=== PATIENT | male | born 1945 | race Caucasian/White ===

== ENCOUNTER 2025-04-14 21:21 | Emergency (ER) | payer MEDICARE, OTHER, SELFPAY ==
--- OUTSIDE RECORDS SUMMARY | 2024-11-19 09:20 | XMS_ITS | Encounter Summary ---
Author Name [facility] Organization [facility] [place] Address [address] [place] [id number] Care Team Providers Care Tire Recapper Name Role Phone BULMARO BONDS Primary Care Provider Jm villalobos Insurance Providers: All historical and current Section Date Range: From patient's date of to the date document was created. This section includes the names of all active insurance providers for the patient. Insurance Provider Type of Coverage Plan Name Start of Policy Coverage End of Policy Coverage Group Number Member ID Insurance Provider's Telephone Number Policy Nina's Name Patient's Relationship to Policy Nina MEDICARE (WNR) MEDICARE (M) PART A Oct 25, 2009 PART A [id number] [phone] JHOAN ALARCONY PATIENT MEDICARE (WNR) MEDICARE (M) PART B Oct 25, 2009 PART B [id number] [phone] HEDJHOAN PEACOCKY PATIENT MEDICARE (WNR) MEDICARE (M) PART B Oct 25, 2009 PART B [id number] [phone] JHOAN ALARCONY PATIENT MEDICARE (WNR) MEDICARE (M) PART A Oct 25, 2009 PART A [id number] [phone] JHOAN ALARCON PATIENT Selected Encounter This section includes the information on record at [place] for the Encounter. Date/Time Encounter Type Encounter Description Reason Pro vider Source Nov 19, 2024 02:20 PM Outpatient Encounter PRIMARY CARE/MEDICINE IHE Encounter Template Text not used by [place] Plan of Treatment: Future Appointments (+ 6 months) and Future Tests (+/- 45 days) The Plan of Treatment section includes future care activities for the [facility] [place] [facility] This section includes future appointments and future orders which are active, pending or scheduled. Future Appointments This section includes appointments that were scheduled to occur 6 months from the date of the Encounter, up to a maximum of 20 appointments. The data comes from all [facility] facilities. Appointment Date/Time Appointment Type Appointme nt Facility Name Feb 17, 2025 07:40 AM AMBULATORY - SURGERY [facility] May 11, 2025 09:40 AM AMBULATORY - SURGERY [facility] Lab Results: +/- 30 days of the encounter This section includes the Chemistry and Hematology Lab Results on record with [place] for the patient. Radiology Reports and Pathology Reports are provided separately, in subsequent sections. Lab Results This section contains the Chemistry/Hematology Results that were resulted 30 days before or 30 daysafter the date of the Encounter. Date/Time Source Result Type Result - Unit Interpretation Reference Range Specimen Type Comment Nov 06, 2024 10:[address] [facility] ALBUMIN/CREATININE RATIO URINE URINE Specimen Type: URINE No comment entered. Ordering Provider: BULMARO BONDS Report Released Date/Time: Oct 10, 2024 09:21 AM Reporting Lab: [facility] [id number] Performing Lab: [facility] [id number] CREATININE,UR RANDOM 142.1 mg/dL 58.0-16 1.0 ALB/CREAT RATIO,UR 50.0 mg/g{creat} H <29. 9 ALBUMIN,UR 71.1 mg/L H <29.9 Nov 06, 2024 10:[address] [facility] BASIC METABOLIC PANEL+MG PLASMA Spe cimen Type: PLASMA No comment entered. Ordering Provider: BULMARO BONDS Report Released Date/Time: Oct 09, 2024 09:44 AM Reporting Lab: [facility] [id number] Performing Lab: [facility] [phone] CREATININE 1.1 mg/dL 0.7-1.2 UREA NITROGEN 28 mg/dL H 8-26 GLUCOSE 126 mg/dL H 70-100 SODIUM 141 mmol/L 136-145 POTASSIUM 4.4 mmol/L 3.5-5.1 CHLORIDE 105 mmol/L 98-107 CO2 29 mmol/L 22-29 CALCIUM 9.9 mg/dL 8.4-10.2 MAGNESIUM 1.7 mg/dL 1.6-2.6 ANION GAP 7 mmol/L 5-15 .CREAT EGFR(CKD-EPI) 68 >60 Nov 06, 2024 10:[address] [facility] B 12 SERUM Specimen Type: SERUM No comment entered. Ordering Provider: BULMARO BONDS Report Released Date/Time: Oct 15, 2024 11:00 AM Reporting Lab: [facility] [phone] Performing Lab: [facility] [id number] B 12 260 pg/mL 213-816 Nov 06, 2024 10:[address] [facility] FOLATE SERUM Specimen Type: SERUM No comment entered. Ordering Provider: BULMARO BONDS Report Released Date/Time: Oct 15, 2024 11:00 AM Reporting Lab: [facility] [phone] Performing Lab: [facility] [phone] FOLATE >20.0 ng/mL >7.0 Nov 06, 2024 10:[address] [facility] IRON GROUP SERUM Specimen Type: SERUM No comment entered. Ordering Provider: BULMARO BONDS Report Released Date/Time: Oct 15, 2024 11:00 AM Reporting Lab: [facility] [phone] Performing Lab: [facility] [phone] IRON 123 ug/dL 65-175 TIBC,CALCULATED 310 ug/dL 250-425 FERRITIN 59.2 ng/mL 21.8-274.7 IRON SATURATION 40 20-50 TRANSFERRIN 248 mg/dL 163-382 Nov 06, 2024 10:[address] [facility] CBC BLOOD Specimen Type: BLOOD No comment entered. Ordering Provider: BULMARO BONDS Report Released Date/Time: Oct 15, 2024 11:00 AM Reporting Lab: [facility] [phone] Performing Lab: [facility] [address] WBC 8.3 4.0-11.0 RBC 4.67 4.60-6.20 HGB 12.9 g/dL L 13.5-17.9 HCT 40.1 L 41.0-54.0 MCV 85.9 fL 80.0-100.0 MCH 27.6 pg 27.0-33.0 MCHC 32.2 g/dL 32.0-37.5 PLT 261 150-400 MPV 9.4 fL 9.1-13.0 RDW 13.2 11.5-14.5 Nov 06, 2024 10:[address] [facility] METHYLMALONIC ACID SERUM Specimen Type: SERUM No comment entered. Ordering Provider: BULMARO BONDS Report Released Date/Time: Nov 06, 2024 12:13 PM Reporting Lab: [facility] [phone] Performing Lab: [facility] [phone] METHYLMALONIC ACID 214 nmol/L 0-400 Social History: Smoking Status (Most current) and Tobacco Use (All prior to encounter date) This section includes the most current, and the historical, smoking and tobacco- related health factors from the [place] facility where the Encounter took place. Current Smoking Status This section includes the most current smoking, or tobacco-related health factor, from the [place] facility where the Encounter took place. Date/Time Current Smoking Status Comment Facil ity Oct 19, 2023 02:30 PM [place] NEVER [facility]ED [facility] Tobacco Use History This section includes a history of the smoking, or tobacco-related health factors, that were collected on or before the date of the Encounter. The data comes from the [place] facility where the Encounter took place. Date/Time Smoking Status/Tobacco Use Comment F acility Nov 03, 2022 02:30 PM [facility] January 04, 2022 09:15 AM VA-TOBACCO NEVER USED [facility] January 11, 2021 08:30 AM VA-TOBACCO NEVER USED [facility] Sep 25, 2019 11:16 AM VA-TOBACCO NEVER USED [facility] Aug 26, 2018 09:32 AM VA-TOBACCO NEVER USED [facility] Aug 30, 2017 07:51 AM LIFETIME NON-TOBACCO USER [facility] Aug 01, 2016 07:54 AM LIFETIME NON-TOBACCO USER [facility] Jul 15, 2015 07:37 AM LIFETIME NON-TOBACCO USER [facility] Jul 21, 2014 08:14 AM FORMER TOBACCO USER 7Y OR GREATE R [facility] Oct 26, 2006 08:49 AM LIFETIME NON-TOBACCO USER [facility] Advance Directives: All historical and current Section Date Range: From patient's date of to the date document was created. This section includes ALL of a patient's completed or amended [place] Advance and Rescinded Directives. The entries below indicate that a directive exists for the patient, but an actual copy is not included with this document. The data comes from all [place] facilities. Date Advance Directives Provider Source Oct 28, 2003 ADVANCE DIRECTIVE [facility] Pathology Reports: +/- 30 days of the encounter Pathology Reports For cases when an order for pathology services may have been completed prior to the date of the Encounter, the report list includes the Pathology Reports that were completed up to 30 days before dateof the Encounter. For cases when an order for pathology services may have been completed after the date of the Encounter, the report list also includes the Pathology Reports that were completed up to30 days after date of the Encounter. The data comes from all [place] treatment facilities. Date/Time Pathology Report Provider Source Nov 13, 2024 11:31 AM [facility] SURGICAL PATHOL OGY REPORT: LOCAL TITLE: LR SURGICAL PATHOLOGY REPORT STANDARD TITLE: PATHOLOGY REPORT DATE OF NOTE: NOV 13, 2024@11:31:06 ENTRY DATE: NOV 13, 2024@11:31:06 AUTHOR: RICHARD MAYNARD EXP COSIGNER: URGENCY: STATUS: COMPLETED $APHDR Reporting Lab: [facility] [CLIA# [id number]] [place] [address] - - - - - - - - - - - - - - - - - - - - - - - - - - - - - - - - - - - - - - - - MEDICAL RECORD SURGICAL PATHOLOGY - - - - - - - - - - - - - - - - - - - - - - - - - - - - - - - - - - - - - - - - PATHOLOGY REPORT Accession [facility]. [facility] [id number] - - - - - - - - - - - - - - - - - - - - - - - - - - - - - - - - - - - - - - - - $TEXT Submitted by: NARCISO SEN Date obtained: Nov 11, 2024 - - - - - - - - - - - - - - - - - - - - - - - - - - - - - - - - - - - - - - - - Specimen (Received Nov 12, 2024 08:57): LEFT HELIX - - - - - - - - - - - - - - - - - - - - - - - - - - - - - - - - - - - - - - - - BRIEF CLINICAL HISTORY: Year-long cutaneous, horn-like lesion Procedure: Shave biopsy - - - - - - - - - - - - - - - - - - - - - - - - - - - - - - - - - - - - - - - - PREOPERATIVE DIAGNOSIS: DDx: SCC vs HAK - - - - - - - - - - - - - - - - - - - - - - - - - - - - - - - - - - - - - - - - OPERATIVE FINDINGS: - - - - - - - - - - - - - - - - - - - - - - - - - - - - - - - - - - - - - - - - POSTOPERATIVE DIAGNOSIS: Surgeon/physician: NARCISO SEN =-=-=-=-=-=-=-=-=-=-=-=-=-= -=-=-=-=-=-=-=-=-=-=-=-=-=- =-=-=-=-=-=-=-=-=-=-=-=-= - - - - - - - - - - - - - - - - - - - - - - - - - - - - - - - - - - - - - - - - PATHOLOGY REPORT Accession No. [facility] [id number] - - - - - - - - - - - - - - - - - - - - - - - - - - - - - - - - - - - - - - - - GROSS DESCRIPTION: The requisition form and specimen(s) identification is confirmed. The specimen is received in formalin labeled as left helix and consists of a shave biopsy measuring 0.5 cm x 0 0.6 cm x 1 cm. There is a elizabeth- monae, hornlike protrusion extending 0.6 cm from the skin surface. The specimen is inked. CE. Moss MICROSCOPIC DESCRIPTION: Microscopic examination performed. DIAGNOSIS: Skin, left helix, shave biopsy-- - Hypertrophic actinic keratosis /joshua/ RICHARD MAYNARD MD STAFF PATHOLOGIST Signed Nov 13, 2024@11:31 Performing Laboratory: Surgical Pathology Report Performed By: [facility] [CLIA# [id number]] [place] [address] $FTR - - - - - - - - - - - - - - - - - - - - - - - - - - - - - - - - - - - - - - - - (End of report) RICHARD MAYNARD MD bcb Date Nov 13, 2024 - - - - - - - - - - - - - - - - - - - - - - - - - - - - - - - - - - - - - - - - MICKEY ALARCON STANDARD FORM 515 ID:[id number] SEX:M :[id number] AGE: 78 LOC:[id number] PCP: Bulmaro Bonds MD /joshua/ RICHARD MAYNARD MD STAFF PATHOLOGIST Signed: 11/13/2024 11:[address] [facility] Encounter Notes: All associated encounter notes This section contains the clinical notes associated to the Encounter. Date/Time Encounter Note(s) Provider Source Nov 19, 2024 02:20 PM LETTERS: LOCAL TITLE: FOLLOW UP RESULTS LETTER STANDARD TITLE: LETTERS DATE OF NOTE: NOV 19, 2024@14:20 ENTRY DATE: NOV 19, 2024@14:20:44 AUTHOR: BULMARO BONDS EXP COSIGNER: URGENCY: STATUS: COMPLETED [facility] [place] [address] Oct MICKEY ALARCON [address] [facility] [id number] Dear : I wanted to let you know that I was able to review your labs from last week. I am happy report that they altogether look pretty good. Your kidney function and electrolytes are normal. Your hemoglobin is stable at 12.9 g/dL. Testing that evaluates for iron deficiency, B12 deficiency, and folate deficiency were all normal. If you have any further questions or problems, please contact our nursing staff or provider at the following number: [phone]. Sincerely, BULMARO BONDS MD PHYSICIAN, [facility] BULMARO BONDS [facility]
--- OUTSIDE RECORDS SUMMARY | 2025-04-14 16:23 | XMS_ITS | Continuity of Care Document ---
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 It does not include entries that were removed or entered in error. Problem Status Onset Date Problem Type Date of Resolution Comments Source Anemia (SCT [id number]) Active Condition Oct 19, 2023 Entered By: BROCK BONDS Comment: had referred to GI for colonoscopy given h/o Lara's and adenomatous polyps in setting of low iron sat 2020 but patient declined evaluation. Instead pursued oral iron.Oct 19, 2023 Entered By: BROCK BONDS Comment: Celiac screen negative 05/2021.Oct 19, 2023 Entered By: BROCK BONDS Comment: Iron replete 03/2023. 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 Oct 19, 2023 Entered By: BROCK BONDS Comment: follow-up EGD due 2024 Entered By: BROCK BONDS Comment: last EGD 11/2023, repeat due 11/2028 [facility] Benign Prostatic Hypertrophy without Outflow Obstruction (SCT 512306069) Active Condition [place] [facility] Diabetes mellitus Active Condition [place] [facility] Diabetic amyotrophy Active [place] [facility] Hyperlipidemia (SNOMED CT 46512652) Active Condition [facility] Hypertension (SNOMED CT 89422717) Active Condition [facility] Microalbuminuria due to type 2 diabetes mellitus [facility] [place] [facility] Polyp colon Active Condition Oct 19, 2023 Entered By: BROCK BONDS Comment: Next due 09/2026 to f/u 2 small adenomas 2016 [facility] 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 Inactive Condition 08/02/2018 [facility] Diagnosis: ICD-10-CM 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, unspecified, bilateral Active Diagnosis [facility] Diagnosis: ICD-10-CM 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 [facility] Diagnosis: ICD-10-CM I10 Essential (primary) hypertension Active Diagnosis [facility] Diagnosis: ICD-10-CM L57.0 Actinic keratosis Active Diagnosis [facility] Diagnosis: ICD-10-CM Z23 Encounter for immunization Active Diagnosis [facility] Diagnosis: ICD-10-CM H40.053 Ocular hypertension, bilateral Active Diagnosis [facility] Diagnosis: ICD-10-CM K22.89 Other specified disease of esophagus Active Diagnosis [facility] Medications Combined list of outpatient medications from Department of Defense and [facility] Affairs facilities.Medications provided include 1) outpatient medications from the last 15 months, and 2) patient-reported medications. Medication Details Route Status Patient Instructions Prescription Expires Prescription Number Last Dispense Date Ordering Provider Order Date Order Qty Source ATORVASTATI N CA 40MG TAB TAKE ONE TABLET BY MOUTH AT BEDTIME FOR CHOLESTE ROL ORAL ACTIVE 06/21/2025 [id number] BROCK BONDS 2023 90 [facility] CALCIPOTRIE NE 0.005% CREAM,TOP APPLY THIN LAYER TOPICALL Y TWICE A DAY FOR PRECANCE RS MIX WITH EQUAL AMOUNT OF FLUOROUR ACIL CREAM AND APPLY TO TOP OF HANDS AND FOREARMS . USE FOR 4-7 DAYS DIRECTED . MIX WITH EQUAL AMOUNT OF FLUOROUR ACIL CREAM AND APPLY TO TOP OF HANDS AND FOREARMS . USE FOR 4-7 DAYS DIRECTED . TOPICA L 12/11/2024 [id number] LUIS SAGE 2024 60 [facility] FERROUS GLUCONATE 324MG TAB TAKE ONE TABLET BY MOUTH EVERY OTHER DAY FOR ANEMIA ORAL ACTIVE 10/16/2025 [id number] 5 BROCK BONDS 2024 100 [facility] FLUOROURACI L 5% CREAM,TOP APPLY THIN LAYER TOPICALL Y TWICE A DAY FOR PRECANCE RS MIX WITH EQUAL AMOUNT OF CALCIPOT RIENE CREAM AND APPLY TO TOP OF HANDS AND FOREARMS . USE FOR 4-7 DAYS DIRECTED . MIX WITH EQUAL AMOUNT OF CALCIPOT RIENE CREAM AND APPLY TO TOP OF HANDS AND FOREARMS . USE FOR 4-7 DAYS DIRECTED . TOPICA L 12/11/2024 [id number] 5 ELENITA JOLUIS LUNDBERG R 2024 40 [place] [facility] FOLIC ACID 1MG TAB TAKE ONE TABLET BY MOUTH EVERY DAY FOR FOLIC ACID SUPPLEME NT ORAL ACTIVE 10/16/2025 [id number] 5 CAMMIE,BROCK B 2024 90 [place] [facility] HYDROCHLORO THIAZIDE 12.5MG TAB TAKE ONE TABLET BY MOUTH EVERY MORNING FOR BLOOD PRESSURE ORAL DISCONT INUED BY PROVIDE R 10/19/2024 [id number] 5 CAMMIE,BROCK B 2023 90 [place] [facility] HYDROCHLORO THIAZIDE 12.5MG/PRETTY NOPRIL 20MG TAB TAKE 2 TABLETS BY MOUTH EVERY DAY FOR BLOOD PRESSURE ORAL ACTIVE 10/10/2025 [id number] CAMMIE,BROCK B 2024 180 [place] [facility] LATANOPROST 0.005% SOLN,OPH INSTILL 1 DROP IN BOTH EYES AT BEDTIME OCULAR HYPERTEN DIANNE REFRIGER ATE BOTTLE UNTIL OPENED. OPHTHA LMIC ACTIVE 02/18/2026 [id number] ISABEL CARPENTER E 2024 7.5 [place] [facility] LATANOPROST 0.005% SOLN,OPH INSTILL 1 DROP IN BOTH EYES AT BEDTIME OCULAR HYPERTEN DIANNE REFRIGER ATE BOTTLE UNTIL OPENED. OPHTHA LMIC DISCONT INUED 02/11/2025 [id number] GUILLERMINA BURGESS 2023 7.5 [place] [facility] LISINOPRIL 20MG TAB TAKE ONE TABLET BY MOUTH EVERY DAY FOR BLOOD PRESSURE ORAL DISCONT INUED BY PROVIDE R 11/13/2024 [id number] NAIDL,TOD D 2023 90 [place] [facility] MOMETASONE FUROATE 200MCG/ACTU AT INHL,ORAL,1 20D,13GM INHALE 2 PUFFS BY INHALATI ON TWICE A DAY FOR COPD RESPIR ATORY (INHAL ATION) DISCONT INUED BY PROVIDE R 03/22/2025 [id number] BROCK BONDS 2023 3 [place] [facility] MOMETASONE FUROATE 220MCG/INHL INHL,ORAL,6 0 INHALE 1 PUFF BY MOUTH EVERY EVENING TO PREVENT BREATHIN G TROUBLE *RINSE MOUTH AFTER USING *DO NOT BREATHE OUT THROUGH THE INHALER *DO NOT WASH INHALER *DISCARD 45 DAYS AFTER FOIL IS REMOVED ORAL ACTIVE 07/23/2025 [id number] 5 BROCK BONDS 2023 1 [place] [facility] MOMETASONE FUROATE 220MCG/INHL INHL,ORAL,6 0 INHALE 1 PUFF BY MOUTH EVERY EVENING TO PREVENT BREATHIN G TROUBLE *RINSE MOUTH AFTER USING *DO NOT BREATHE OUT THROUGH THE INHALER *DO NOT WASH INHALER *DISCARD 45 DAYS AFTER FOIL IS REMOVED ORAL DISCONT INUED BY PROVIDE R 03/18/2025 [id number] 4 BROCK BONDS 2023 1 [facility] OMEPRAZOLE 20MG CAP,EC TAKE ONE CAPSULE BY MOUTH EVERY DAY FOR STOMACH ACID ORAL ACTIVE 10/10/2025 [id number] 5 BROCK BONDS 2024 90 [facility] OMEPRAZOLE 20MG CAP,EC TAKE ONE CAPSULE BY MOUTH EVERY DAY FOR STOMACH ACID ORAL DISCONT INUED 11/16/2024 [id number] 5 BROCK BONDS 2023 90 [facility] TERAZOSIN HCL 10MG CAP TAKE ONE CAPSULE BY MOUTH AT BEDTIME FOR PROSTATE AND BLOOD PRESSURE ORAL ACTIVE 10/10/2025 [id number] 5 JHOAN BONDSO Juvenal 2024 90 [facility] TERAZOSIN HCL 10MG CAP TAKE ONE CAPSULE BY MOUTH AT BEDTIME FOR PROSTATE AND BLOOD PRESSURE ORAL DISCONT INUED 02/11/2025 [id number] 4 BROCK BONDS 2023 90 [facility] Immunizations Combined list of available immunizations from the Department of Defense and Veterans Affairs facilities. 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 Status Comments Source COVID-19 ([facility]), MRNA, LNP-S, PF, HENRI-SUCROSE, 30 MCG/0.3 ML (AGES 12+ YEARS) 1 2023 MODE CLEMENTE RIGHT DELTO ID [id number] 309 complet ed [facility] INFLUENZA, HIGH-DOSE, TRIVALENT, PF 2023 MDOE CLEMENTE LEFT DELTO ID [id number] 135 complet ed Booster for Series, [facility] INFLUENZA, HIGH-DOSE, QUADRIVALENT 2022 BASILIO CRENSHAW RIGHT DELTO ID [id number] 197 complet ed [facility] TDAP 2022 BASILIO CRENSHAW LEFT DELTO ID [id number] 115 complet ed [facility] COVID-19 ([facility]), MRNA, LNP-S, BIVALENT BOOSTER, PF, 30 MCG/0.3 ML DOSE 1 2021 SHARDA FRIAS LEFT DELTO ID [id number] 300 complet ed [facility] COVID-19 ([facility]), MRNA, LNP-S, PF, 30 MCG/0.3 ML DOSE, HENRI-SUCROSE (AGES 12+ YEARS) 4 2021 217 complet ed PFR; [id number]; 2 [facility] COVID-19 (Adan), MRNA, LNP-S, PF, 30 MCG/0.3 ML DOSE 2 2020 208 complet ed PFR; [id number]; 1 [facility] COVID-19 ([facility]an), MRNA, LNP-S, PF, 30 MCG/0.3 ML DOSE 1 2020 208 complet ed PFR; [id number]; 1 [facility] INFLUENZA, SEASONAL, INJECTABLE, PRESERVATIVE FREE 2018 140 complet ed [facility] ZOSTER RECOMBINANT 2 2018 187 complet ed [facility] INFLUENZA, SEASONAL, INJECTABLE, PRESERVATIVE FREE 2018 140 complet ed [facility] ZOSTER RECOMBINANT 1 2018 187 complet ed [facility] INFLUENZA, HIGH DOSE SEASONAL 2016 135 complet ed [facility] INFLUENZA, HIGH DOSE SEASONAL 2015 135 complet ed [facility] INFLUENZA, HIGH DOSE SEASONAL 2014 135 complet ed [facility] PNEUMOCOCCAL CONJUGATE PCV 13 2014 133 complet ed [place] 21582 exp 12/11 [facility] INFLUENZA, UNSPECIFIED FORMULATION 2013 88 complet ed [facility] INFLUENZA, UNSPECIFIED FORMULATION 2012 88 complet ed [facility] PNEUMOCOCCAL, UNSPECIFIED FORMULATION 2012 109 [place] [address] [facility] TDAP 2012 115 complet ed 253B4/ [facility] INFLUENZA, UNSPECIFIED FORMULATION 2011 88 complet ed [facility] ZOSTER LIVE 2011 121 complet ed xx [facility] INFLUENZA, UNSPECIFIED FORMULATION 2006 88 complet ed [facility] PNEUMOCOCCAL, UNSPECIFIED FORMULATION 2004 109 complet ed [facility] TD(ADULT) UNSPECIFIED FORMULATION 2003 139 complet ed [facility] Results Combined list of recent chemistry, hematology and other laboratory results from Department of Defense and Veterans Affairs, ranging from 15 months to all on record, depending upon the facility. Order Name Results Value Reference Range Date Interpretation Specimen Comments Source ALBUMIN/C REATININE RATIO URINE CREATININE [MASS/VOLUM E] IN URINE 142.1 mg/dL 58.0 - 161.0 11/06 Specimen Type: URINE No comment entered. Ordering Provider: BROCK BONDS Report Released Date/Time: Oct 10, 2024 09:21 AM Reporting Lab: [facility] [phone] Performing Lab: [facility] [phone] [facility] ALBUMIN/C REATININE RATIO URINE MICROALBUMI N/CREATININ E [MASS RATIO] IN URINE 50.0 mg/g{c reat} <29.9 - 29.9 11/06 H Specimen Type: URINE No comment entered. Ordering Provider: BROCK BONDS Report Released Date/Time: Oct 10, 2024 09:21 AM Reporting Lab: [facility] [phone] Performing Lab: [facility] [address] [place] [facility] ALBUMIN/C REATININE RATIO URINE MICROALBUMI N [MASS/VOLUM E] IN URINE 71.1 mg/L <29.9 - 29.9 11/06 H Specimen Type: URINE No comment entered. Ordering Provider: BROCK BONDS Report Released Date/Time: Oct 10, 2024 09:21 AM Reporting Lab: [facility] [phone] Performing Lab: [facility] [address] [place] [facility] BASIC METABOLIC PANEL+MG CREATININE [MASS/VOLUM E] IN SERUM OR PLASMA 1.1 mg/dL 0.7 - 1.2 11/06 Specimen Type: PLASMA No comment entered. Ordering Provider: BROCK BONDS Report Released Date/Time: Oct 09, 2024 09:44 AM Reporting Lab: [facility] [phone] Performing Lab: [facility] [address] [place] [facility] BASIC METABOLIC PANEL+MG UREA NITROGEN [MASS/VOLUM E] IN SERUM OR PLASMA 28 mg/dL 8 - 26 11/06 H Specimen Type: PLASMA No comment entered. Ordering Provider: BROCK BONDS Report Released Date/Time: Oct 09, 2024 09:44 AM Reporting Lab: [facility] [address] Performing Lab: [facility] [address] [place] [facility] BASIC METABOLIC PANEL+MG GLUCOSE [MASS/VOLUM E] IN SERUM OR PLASMA 126 mg/dL 70 - 100 11/06 H Specimen Type: PLASMA No comment entered. Ordering Provider: BROCK BONDS Report Released Date/Time: Oct 09, 2024 09:44 AM Reporting Lab: [facility] [address] Performing Lab: [facility] [phone] [place] [facility] BASIC METABOLIC PANEL+MG SODIUM [MOLES/VOLU ME] IN SERUM OR PLASMA 141 mmol/L 136 - 145 11/06 Specimen Type: PLASMA No comment entered. Ordering Provider: BRCOK BONDS Report Released Date/Time: Oct 09, 2024 09:44 AM Reporting Lab: [facility] [phone] Performing Lab: [facility] [phone] [place] [facility] BASIC METABOLIC PANEL+MG POTASSIUM [MOLES/VOLU ME] IN SERUM OR PLASMA 4.4 mmol/L 3.5 - 5.1 11/06 Specimen Type: PLASMA No comment entered. Ordering Provider: BROCK BONDS Report Released Date/Time: Oct 09, 2024 09:44 AM Reporting Lab: [facility] [phone] Performing Lab: [facility] [address] [place] [facility] BASIC METABOLIC PANEL+MG CHLORIDE [MOLES/VOLU ME] IN SERUM OR PLASMA 105 mmol/L 98 - 107 11/06 Specimen Type: PLASMA No comment entered. Ordering Provider: BROCK BONDS Report Released Date/Time: Oct 09, 2024 09:44 AM Reporting Lab: [facility] [phone] Performing Lab: [facility] [address] [place] [facility] BASIC METABOLIC PANEL+MG CARBON DIOXIDE, TOTAL [MOLES/VOLU ME] IN SERUM OR PLASMA 29 mmol/L 22 - 29 11/06 Specimen Type: PLASMA No comment entered. Ordering Provider: BROCK BONDS Report Released Date/Time: Oct 09, 2024 09:44 AM Reporting Lab: [facility] [phone] Performing Lab: [facility] [address] [place] [facility] BASIC METABOLIC PANEL+MG CALCIUM [MASS/VOLUM E] IN SERUM OR PLASMA 9.9 mg/dL 8.4 - 10.2 11/06 Specimen Type: PLASMA No comment entered. Ordering Provider: BROCK BONDS Report Released Date/Time: Oct 09, 2024 09:44 AM Reporting Lab: [facility] [phone] Performing Lab: [facility] [phone] [place] [facility] BASIC METABOLIC PANEL+MG MAGNESIUM [MASS/VOLUM E] IN SERUM OR PLASMA 1.7 mg/dL 1.6 - 2.6 11/06 Specimen Type: PLASMA No comment entered. Ordering Provider: BROCK BONDS Report Released Date/Time: Oct 09, 2024 09:44 AM Reporting Lab: [facility] [phone] Performing Lab: [facility] [phone] [place] [facility] BASIC METABOLIC PANEL+MG ANION GAP IN SERUM OR PLASMA 7 mmol/L 5 - 15 11/06 Specimen Type: PLASMA No comment entered. Ordering Provider: BROCK BONDS Report Released Date/Time: Oct 09, 2024 09:44 AM Reporting Lab: [facility] [address] Performing Lab: [facility] [address] [place] [facility] BASIC METABOLIC PANEL+MG GLOMERULAR FILTRATION RATE/1.73 SQ M.PREDICTED [VOLUME RATE/AREA] IN SERUM, PLASMA OR BLOOD BY CREATININE- BASED FORMULA (CKD-EPI 2020) 68 60 11/06 Specimen Type: PLASMA No comment entered. Ordering Provider: BROCK BONDS Report Released Date/Time: Oct 09, 2024 09:44 AM Reporting Lab: [facility] [address] Performing Lab: [facility] [address] [place] [facility] FOLATE FOLATE [MASS/VOLUM E] IN SERUM OR PLASMA >20.0n g/mL 7.0 11/06 Specimen Type: SERUM No comment entered. Ordering Provider: BROCK BONDS Report Released Date/Time: Oct 15, 2024 11:00 AM Reporting Lab: [facility] [address] Performing Lab: [facility] [address] [place] [facility] B 12 COBALAMIN (VITAMIN B12) [MASS/VOLUM E] IN SERUM OR PLASMA 260 pg/mL 213 - 816 11/06 Specimen Type: SERUM No comment entered. Ordering Provider: BROCK BONDS Report Released Date/Time: Oct 15, 2024 11:00 AM Reporting Lab: [facility] [phone] Performing Lab: [facility] [phone] [place] [facility] IRON GROUP IRON [MASS/VOLUM E] IN SERUM OR PLASMA 123 ug/dL 65 - 175 11/06 Specimen Type: SERUM No comment entered. Ordering Provider: BROCK BONDS Report Released Date/Time: Oct 15, 2024 11:00 AM Reporting Lab: [facility] [address] Performing Lab: [facility] [phone] [place] [facility] IRON GROUP IRON BINDING CAPACITY [MASS/VOLUM E] IN SERUM OR PLASMA 310 ug/dL 250 - 425 11/06 Specimen Type: SERUM No comment entered. Ordering Provider: BROCK BONDS Report Released Date/Time: Oct 15, 2024 11:00 AM Reporting Lab: [facility] [address] Performing Lab: [facility] [address] [place] [facility] IRON GROUP FERRITIN [MASS/VOLUM E] IN SERUM OR PLASMA 59.2 ng/mL 21.8 - 274.7 11/06 Specimen Type: SERUM No comment entered. Ordering Provider: BROCK BONDS Report Released Date/Time: Oct 15, 2024 11:00 AM Reporting Lab: [facility] [phone] Performing Lab: [facility] [phone] [place] [facility] IRON GROUP IRON SATURATION 40 20 - 50 11/06 Specimen Type: SERUM No comment entered. Ordering Provider: BROCK BONDS Report Released Date/Time: Oct 15, 2024 11:00 AM Reporting Lab: [facility] [phone] Performing Lab: [facility] [phone] [place] [facility] IRON GROUP TRANSFERRIN [MASS/VOLUM E] IN SERUM OR PLASMA 248 mg/dL 163 - 382 11/06 Specimen Type: SERUM No comment entered. Ordering Provider: BROCK BONDS Report Released Date/Time: Oct 15, 2024 11:00 AM Reporting Lab: [facility] [phone] Performing Lab: [facility] [phone] [place] [facility] CBC LEUKOCYTES [#/VOLUME] IN BLOOD BY AUTOMATED COUNT 8.3 4.0 - 11.0 11/06 Specimen Type: BLOOD No comment entered. Ordering Provider: BROCK BONDS Report Released Date/Time: Oct 15, 2024 11:00 AM Reporting Lab: [facility] [address] Performing Lab: [facility] [phone] [facility] CBC ERYTHROCYTE S [#/VOLUME] IN BLOOD BY AUTOMATED COUNT 4.67 4.60 - 6.20 11/06 Specimen Type: BLOOD No comment entered. Ordering Provider: BROCK BONDS Report Released Date/Time: Oct 15, 2024 11:00 AM Reporting Lab: [facility] [phone] Performing Lab: [facility] [address] [facility] CBC HEMOGLOBIN [MASS/VOLUM E] IN BLOOD 12.9 g/dL 13.5 - 17.9 11/06 L Specimen Type: BLOOD No comment entered. Ordering Provider: BROCK BONDS Report Released Date/Time: Oct 15, 2024 11:00 AM Reporting Lab: [facility] [phone] Performing Lab: [facility] [phone] [place] [facility] CBC HEMATOCRIT [VOLUME FRACTION] OF BLOOD BY AUTOMATED COUNT 40.1 41.0 - 54.0 11/06 L Specimen Type: BLOOD No comment entered. Ordering Provider: BROCK BONDS Report Released Date/Time: Oct 15, 2024 11:00 AM Reporting Lab: [facility] [address] Performing Lab: [facility] [phone] [place] [facility] CBC MCV [ENTITIC VOLUME] BY AUTOMATED COUNT 85.9 fL 80.0 - 100.0 11/06 Specimen Type: BLOOD No comment entered. Ordering Provider: BROCK BONDS Report Released Date/Time: Oct 15, 2024 11:00 AM Reporting Lab: [facility] [address] Performing Lab: [facility] [phone] [place] [facility] CBC MCH [ENTITIC MASS] BY AUTOMATED COUNT 27.6 pg 27.0 - 33.0 11/06 Specimen Type: BLOOD No comment entered. Ordering Provider: BROCK BONDS Report Released Date/Time: Oct 15, 2024 11:00 AM Reporting Lab: [facility] [phone] Performing Lab: [facility] [phone] [facility] CBC MCHC [MASS/VOLUM E] BY AUTOMATED COUNT 32.2 g/dL 32.0 - 37.5 11/06 Specimen Type: BLOOD No comment entered. Ordering Provider: BROCK BONDS Report Released Date/Time: Oct 15, 2024 11:00 AM Reporting Lab: [facility] [address] Performing Lab: [facility] [phone] [facility] CBC PLATELETS [#/VOLUME] IN BLOOD BY AUTOMATED COUNT 261 150 - 400 11/06 Specimen Type: BLOOD No comment entered. Ordering Provider: BROCK BONDS Report Released Date/Time: Oct 15, 2024 11:00 AM Reporting Lab: [facility] [phone] Performing Lab: [facility] [phone] [facility] IS [facility] CBC PLATELET MEAN VOLUME [ENTITIC VOLUME] IN BLOOD BY AUTOMATED COUNT 9.4 fL 9.1 - 13.0 11/06 Specimen Type: BLOOD No comment entered. Ordering Provider: BROCK BONDS Report Released Date/Time: Oct 15, 2024 11:00 AM Reporting Lab: [facility] [phone] Performing Lab: [facility] [address] [facility] IS [facility] CBC ERYTHROCYTE DISTRIBUTIO N WIDTH [RATIO] BY AUTOMATED COUNT 13.2 11.5 - 14.5 11/06 Specimen Type: BLOOD No comment entered. Ordering Provider: BROCK BONDS Report Released Date/Time: Oct 15, 2024 11:00 AM Reporting Lab: [facility] [address] Performing Lab: [facility] [address] [place] [facility] METHYLMAL ONIC ACID METHYLMALON ATE [MOLES/VOLU ME] IN SERUM OR PLASMA 214 nmol/L 0 - 400 11/06 Specimen Type: SERUM No comment entered. Ordering Provider: BROCK BONDS Report Released Date/Time: Nov 06, 2024 12:13 PM Reporting Lab: [facility] [address] Performing Lab: [facility] [address] [place] [facility] HEMOGLOBI N A1C HEMOGLOBIN A1C/HEMOGLO BIN.TOTAL IN BLOOD 6.3 4.0 - 6.0 10/09 H Specimen Type: BLOOD Comment: Values obtained from A1C measurement s can vary. For typical A1C assays, a reported value of 7.0 could actually be between 6.7 and 7.3 if measured by a reference method. A reported value of 9.0 could actually be between 8.7 and 9.3. Ref: [email or web address]://[email or web address] ngsp.org/[place] Pdata.asp Ordering Provider: BROCK BONDS Report Released Date/Time: Oct 19, 2023 03:01 PM Reporting Lab: [facility] [address] Performing Lab: [facility] [address] [place] [facility] LIPID PANEL,NON -FASTING CHOLESTEROL [MASS/VOLUM E] IN SERUM OR PLASMA 128 mg/dL <199 - 199 10/09 Specimen Type: PLASMA No comment entered. Ordering Provider: BROCK BONDS Report Released Date/Time: Oct 19, 2023 03:01 PM Reporting Lab: [facility] [address] Performing Lab: [facility] [address] [place] [facility] LIPID PANEL,NON -FASTING CHOLESTEROL IN HDL [MASS/VOLUM E] IN SERUM OR PLASMA 39 mg/dL 40 10/09 L Specimen Type: PLASMA No comment entered. Ordering Provider: BROCK BONDS Report Released Date/Time: Oct 19, 2023 03:01 PM Reporting Lab: [facility] [address] Performing Lab: [facility] [address] [place] [facility] LIPID PANEL,NON -FASTING CHOLESTEROL IN LDL [MASS/VOLUM E] IN SERUM OR PLASMA BY CALCULATION 80 mg/dL <99 - 99 10/09 Specimen Type: PLASMA No comment entered. Ordering Provider: BROCK BONDS Report Released Date/Time: Oct 19, 2023 03:01 PM Reporting Lab: [facility] [address] Performing Lab: [facility] [address] [place] [facility] LIPID PANEL,NON -FASTING CHOLESTEROL IN VLDL [MASS/VOLUM E] IN SERUM OR PLASMA BY CALCULATION 9 mg/dL <29 - 29 10/09 Specimen Type: PLASMA No comment entered. Ordering Provider: BROCK BONDS Report Released Date/Time: Oct 19, 2023 03:01 PM Reporting Lab: [facility] [phone] Performing Lab: [facility] [address] [place] [facility] LIPID PANEL,NON -FASTING CHOLESTEROL NON HDL [MASS/VOLUM E] IN SERUM OR PLASMA 89 mg/dL <129 - 129 10/09 Specimen Type: PLASMA No comment entered. Ordering Provider: BROCK BONDS Report Released Date/Time: Oct 19, 2023 03:01 PM Reporting Lab: [facility] [phone] Performing Lab: [facility] [address] [place] [facility] LIPID PANEL,NON -FASTING TRIGLYCERID E [MASS/VOLUM E] IN SERUM OR PLASMA 45 mg/dL <149 - 149 10/09 Specimen Type: PLASMA No comment entered. Ordering Provider: BROCK BONDS Report Released Date/Time: Oct 19, 2023 03:01 PM Reporting Lab: [facility] [id number] Performing Lab: [facility] [address] [place] [facility] CBC LEUKOCYTES [#/VOLUME] IN BLOOD BY AUTOMATED COUNT 6.8 4.0 - 11.0 10/09 Specimen Type: BLOOD No comment entered. Ordering Provider: BROCK BONDS Report Released Date/Time: Oct 19, 2023 03:01 PM Reporting Lab: [facility] [phone] Performing Lab: [facility] [id number] [place] [facility] CBC ERYTHROCYTE S [#/VOLUME] IN BLOOD BY AUTOMATED COUNT 4.40 4.60 - 6.20 10/09 L Specimen Type: BLOOD No comment entered. Ordering Provider: BROCK BONDS Report Released Date/Time: Oct 19, 2023 03:01 PM Reporting Lab: [facility] [phone] Performing Lab: [facility] [address] [place] [facility] CBC HEMOGLOBIN [MASS/VOLUM E] IN BLOOD 12.0 g/dL 13.5 - 17.9 10/09 L Specimen Type: BLOOD No comment entered. Ordering Provider: BROCK BONDS Report Released Date/Time: Oct 19, 2023 03:01 PM Reporting Lab: [facility] [address] Performing Lab: [facility] [address] [place] [facility] CBC HEMATOCRIT [VOLUME FRACTION] OF BLOOD BY AUTOMATED COUNT 37.4 41.0 - 54.0 10/09 L Specimen Type: BLOOD No comment entered. Ordering Provider: BROCK BONDS Report Released Date/Time: Oct 19, 2023 03:01 PM Reporting Lab: [facility] [address] Performing Lab: [facility] [address] [place] [facility] CBC MCV [ENTITIC VOLUME] BY AUTOMATED COUNT 85.0 fL 80.0 - 100.0 10/09 Specimen Type: BLOOD No comment entered. Ordering Provider: BROCK BONDS Report Released Date/Time: Oct 19, 2023 03:01 PM Reporting Lab: [facility] [phone] Performing Lab: [facility] [address] [place] [facility] CBC MCH [ENTITIC MASS] BY AUTOMATED COUNT 27.3 pg 27.0 - 33.0 10/09 Specimen Type: BLOOD No comment entered. Ordering Provider: BROCK BONDS Report Released Date/Time: Oct 19, 2023 03:01 PM Reporting Lab: [facility] [address] Performing Lab: [facility] [address] [facility] CBC MCHC [MASS/VOLUM E] BY AUTOMATED COUNT 32.1 g/dL 32.0 - 37.5 10/09 Specimen Type: BLOOD No comment entered. Ordering Provider: BROCK BONDS Report Released Date/Time: Oct 19, 2023 03:01 PM Reporting Lab: [facility] [address] Performing Lab: [facility] [address] [facility] CBC PLATELETS [#/VOLUME] IN BLOOD BY AUTOMATED COUNT 272 150 - 400 10/09 Specimen Type: BLOOD No comment entered. Ordering Provider: BROCK BONDS Report Released Date/Time: Oct 19, 2023 03:01 PM Reporting Lab: [facility] [address] Performing Lab: [facility] [address] [facility] CBC PLATELET MEAN VOLUME [ENTITIC VOLUME] IN BLOOD BY AUTOMATED COUNT 9.1 fL 9.1 - 13.0 10/09 Specimen Type: BLOOD No comment entered. Ordering Provider: BROCK BONDS Report Released Date/Time: Oct 19, 2023 03:01 PM Reporting Lab: [facility] [address] Performing Lab: [facility] [address] [facility] IS [facility] CBC ERYTHROCYTE DISTRIBUTIO N WIDTH [RATIO] BY AUTOMATED COUNT 12.8 11.5 - 14.5 10/09 Specimen Type: BLOOD No comment entered. Ordering Provider: BROCK BONDS Report Released Date/Time: Oct 19, 2023 03:01 PM Reporting Lab: [facility] [address] Performing Lab: [facility] [phone] [facility] Vital Signs Combined list of inpatient and outpatient Vital Signs from Department of Defense and Veterans Affairs, ranging from 12 months to all on record, depending upon the facility. Vital Sign Value Date Comments Source SYSTOLIC BLOOD PRESSURE 151 10/09/2024 08:27:25 [facility] DIASTOLIC BLOOD PRESSURE 76 10/09/2024 08:27:25 [facility] PULSE OXIMETRY 94 10/09/2024 08:27:25 [place] [facility] WEIGHT 220 10/09/2024 08:27:25 [facility] BMI 34 kg/m2 10/09/2024 08:27:25 [facility] PAIN 0 10/09/2024 08:27:25 [facility] HEIGHT 68 10/09/2024 08:27:25 [facility] TEMPERATURE 96.7 10/09/2024 08:27:25 [facility] PULSE 86 10/09/2024 08:27:25 [facility] RESPIRATION 19 10/09/2024 08:27:25 [facility] Encounters Combined list of: 1) Encounters from Department of Veterans Affairs facilities going backup to the last 18 months, not all [place] inpatient encounters are included; 2) Encounters from the Department of [facility] facilities going backup to 280 months. Location Location Details Encounter Type Encounter Number Reason For Visit Attending Provider ADM Date DC Date Status Disposition Source [facility] OFFICE O/P EST HI 40 MIN [id number] Diagnos is: ICD-10- CM I10 Essenti al (primar y) hyperte nsion BROCK BONDS 10/19 [facility] UNLISTED SPEC DERM SVC/PX [id number] Diagnos is: ICD-10- CM D48.5 Neoplas m of uncerta in behavio r of skin GHULAM SMITH A 10/19 [facility] Outpatient Encounter [id number] Diagnos is: ICD-10- CM D48.5 Neoplas m of uncerta in behavio r of skin DANISH GUADARRAMA 10/22 [facility] Outpatient Encounter [id number] 10/23 [facility] Outpatient Encounter [id number] 10/28 [place] [facility] [place] [facility] Outpatient Encounter [id number] 11/12 [place] [facility] [place] [facility] MTMS BY PHARM EST 15 MIN [id number] Diagnos is: ICD-10- CM I10 Essenti al (primar y) hyperte ANTONIO Larsen 11[facility]12 [place] [facility] [place] [facility] Outpatient Encounter [id number] 11/18 [place] [facility] [place] [facility] Outpatient Encounter [id number] 12/02 [place] [facility] [place] [facility] MOD SED SAME PHYS/QHP 5/>YRS [id number] Diagnos is: ICD-10- CM K22.89 Other specifi ed disease of esophag us MERARY HOUSTON 12/03 [place] [facility] [place] [facility] Outpatient Encounter [id number] 12/03 [place] [facility] [place] [facility] Outpatient Encounter [id number] 12/04 [place] [facility] [place] [facility] Outpatient Encounter [id number] ANMOL RICHARD 12/04 [place] [facility] [place] [facility] Outpatient Encounter [id number] 01/10 [place] [facility] [place] [facility] OFFICE O/P EST MOD 30 MIN [id number] Diagnos is: ICD-10- CM 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 MIC HAEL A 02[facility]10 [facility] [place] [facility] Outpatient Encounter [id number] 03/20 [place] [facility] [place] [facility] ADMN SARSCOV2 VACC 1 DOSE [id number] Diagnos is: ICD-10- CM Z23 Encount er for immuniz ation MODE CLEMENTE Yasmeen 06/19 [facility] Outpatient Encounter [id number] 10/09 [facility] Outpatient Encounter [id number] 10/09 [facility] OFFICE O/P EST MOD 30 MIN [id number] Diagnos is: ICD-10- CM L57.0 Actinic keratos is BROCK BONDS 10/09 [facility] PH1 ASSMT&MGMT NQHP 11-20 [id number] Diagnos is: ICD-10- CM I10 Essenti al (primar y) hyperte nsion BROCK BONDS 11/06 [facility] OFFICE O/P EST MOD 30 MIN [id number] Diagnos is: ICD-10- CM D48.5 Neoplas m of uncerta in behavio r of skin SKIBNESS,L ORIE A 11/11 [facility] Outpatient Encounter [id number] 11/12 [facility] Outpatient Encounter [id number] RICHARD MAYNARD 11/13 [facility] Outpatient Encounter [id number] 11/19 [facility] OFFICE O/P EST MOD 30 MIN [id number] Diagnos is: ICD-10- CM 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 Social History Type Response Date Comment Sourc e Tobacco smoking status NHIS VA-TOBACCO NEVER USED 10/19/2023 PITA Ferraro [facility] History of tobacco use VA-TOBACCO NEVER USED 11/03/2022 [facility] History of tobacco use VA-TOBACCO NEVER USED 01/04/2022 [facility] History of tobacco use VA-TOBACCO NEVER USED 01/11/2021 [facility] History of tobacco use VA-TOBACCO NEVER USED 09/25/2019 [facility] History of tobacco use VA-TOBACCO NEVER USED 08/26/2018 [facility] History of tobacco use LIFETIME NON-TOBA LINING STAMPER USER 08/30/2017 [facility] History of tobacco use LIFETIME NON-TOBA LINING STAMPER USER 08/01/2016 [facility] History of tobacco use LIFETIME NON-TOBA LINING STAMPER USER 07/15/2015 [facility] History of tobacco use FORMER TOBACCO US ER 7Y OR GREATER 07/21/2014 [facility] History of tobacco use LIFETIME NON-TOBA LINING STAMPER USER 10/26/2006 [facility] Plan of Care List of future care activities from Department Veterans Affairs facilities. Additional future care activities may be listed in the Assessment and Plan section. Date/Time Care Activity Care Activity Detail Facili ty 05/11/2025 AMBULATORY - SURGERY AMBULATORY - SURGERY [facility] Advance Directives List of completed, amended, or rescinded Advance Directives on record at [facility] facilities. An actual copy of the Directive is not included. Date Advance Directive Provider Source 10/28/2003 ADVANCE DIRECTIVE ROBERT ROGERS [facility]
--- OUTSIDE RECORDS SUMMARY | 2025-04-14 16:23 | XMS_ITS | Continuity of Care Document ---
Author Name [facility] Organization [facility] Care Team Providers Care B Operator Name Role Phone [facility] Unavailable Unavailable Problems Combined list of problems from Department of Defense and Veterans Affairs facilities. It does not include entries that were removed or entered in error. Problem Status Onset Date Problem Type Date of Resolution Comments Source Anemia (SCT [id number]) Active Condition Oct 19, 2023 Entered By: BROCK BONDS Comment: had referred to GI for colonoscopy given h/o Lara's and adenomatous polyps in setting of low iron sat 2020 but patient declined evaluation. Instead pursued oral iron.Oct 19, 2023 Entered By: BROCK BONDS Comment: Celiac screen negative 05/2021.Oct 19, 2023 Entered By: BROCK BONDS Comment: Iron replete 03/2023. 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 Oct 19, 2023 Entered By: BROCK BONDS Comment: follow-up EGD due 2024 Entered By: BROCK BONDS Comment: last EGD 11/2023, repeat due 11/2028 [facility] Benign Prostatic Hypertrophy without Outflow Obstruction (SCT 842919920) [place] [facility] Diabetes mellitus Active Condition [place] [facility] Diabetic amyotrophy Active [place] [facility] Hyperlipidemia (SNOMED CT 00738088) Active Condition [facility] Hypertension (SNOMED CT 68933150) Active Condition [facility] Microalbuminuria due to type 2 diabetes mellitus [facility] Polyp colon Active Condition Oct 19, 2023 Entered By: BROCK BONDS Comment: Next due 09/2026 to f/u 2 small adenomas 2016 [facility] 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 Inactive Condition 08/02/2018 [facility] Diagnosis: ICD-10-CM 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, unspecified, bilateral Active Diagnosis [facility] Diagnosis: ICD-10-CM 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 [facility] Diagnosis: ICD-10-CM I10 Essential (primary) hypertension Active Diagnosis [facility] Diagnosis: ICD-10-CM L57.0 Actinic keratosis Active Diagnosis [facility] Diagnosis: ICD-10-CM Z23 Encounter for immunization Active Diagnosis [facility] Diagnosis: ICD-10-CM H40.053 Ocular hypertension, bilateral Active Diagnosis [facility] Diagnosis: ICD-10-CM K22.89 Other specified disease of esophagus Active Diagnosis [facility] Medications Combined list of outpatient medications from Department of Defense and [facility] Affairs facilities.Medications provided include 1) outpatient medications from the last 15 months, and 2) patient-reported medications. Medication Details Route Status Patient Instructions Prescription Expires Prescription Number Last Dispense Date Ordering Provider Order Date Order Qty Source ATORVASTATI N CA 40MG TAB TAKE ONE TABLET BY MOUTH AT BEDTIME FOR CHOLESTE ROL ORAL ACTIVE 06/21/2025 [id number] BROCK BONDS 2023 90 [facility] CALCIPOTRIE NE 0.005% CREAM,TOP APPLY THIN LAYER [...] 4-7 DAYS DIRECTED . TOPICA L 12/11/2024 [id number] LUIS SAGE 2024 60 [facility] FERROUS GLUCONATE 324MG TAB TAKE ONE TABLET BY MOUTH EVERY OTHER DAY FOR ANEMIA ORAL ACTIVE 10/16/2025 [id number] 5 BROCK BONDS 2024 100 [facility] FLUOROURACI L 5% CREAM,TOP APPLY THIN LAYER [...] 4-7 DAYS DIRECTED . TOPICA L 12/11/2024 [id number] ELENITA JOLUIS LUNDBERG R 2024 40 [place] [facility] FOLIC ACID 1MG TAB TAKE ONE TABLET BY MOUTH EVERY DAY FOR FOLIC ACID SUPPLEME NT ORAL ACTIVE 10/16/2025 [id number] CAMMIE,BROCK B 2024 90 [place] [facility] HYDROCHLORO THIAZIDE 12.5MG TAB TAKE ONE TABLET BY MOUTH EVERY MORNING FOR BLOOD PRESSURE ORAL DISCONT INUED BY PROVIDE R 10/19/2024 [id number] CAMMIE,BROCK B 2023 90 [place] [facility] HYDROCHLORO THIAZIDE 12.5MG/PRETTY NOPRIL 20MG TAB TAKE 2 TABLETS BY MOUTH EVERY DAY FOR BLOOD PRESSURE ORAL ACTIVE 10/10/2025 [id number] CAMMIE,BROCK B 2024 180 [place] [facility] LATANOPROST 0.005% SOLN,OPH INSTILL 1 DROP IN BOTH EYES AT BEDTIME OCULAR HYPERTEN DIANNE REFRIGER ATE BOTTLE UNTIL OPENED. OPHTHA LMIC ACTIVE 02/18/2026 [id number] ISABEL CARPENTER E 2024 7.5 [place] [facility] LATANOPROST 0.005% SOLN,OPH INSTILL 1 DROP IN BOTH EYES AT BEDTIME OCULAR HYPERTEN DIANNE REFRIGER ATE BOTTLE UNTIL OPENED. OPHTHA LMIC DISCONT INUED 02/11/2025 [id number] GUILLERMINA BUREGSS 2023 7.5 [place] [facility] LISINOPRIL 20MG TAB TAKE ONE TABLET BY MOUTH EVERY DAY FOR BLOOD PRESSURE ORAL DISCONT INUED BY PROVIDE R 11/13/2024 [id number] NAIDL,TOD D 2023 90 [place] [facility] MOMETASONE FUROATE 200MCG/ACTU AT INHL,ORAL,1 20D,13GM INHALE 2 PUFFS BY INHALATI ON TWICE A DAY FOR COPD RESPIR ATORY (INHAL ATION) DISCONT INUED BY PROVIDE R 03/22/2025 [id number] BROCK BONDS 2023 3 [place] [facility] MOMETASONE FUROATE 220MCG/INHL INHL,ORAL,6 0 INHALE 1 PUFF BY MOUTH EVERY EVENING TO PREVENT BREATHIN G TROUBLE *RINSE MOUTH AFTER USING *DO NOT BREATHE OUT THROUGH THE INHALER *DO NOT WASH INHALER *DISCARD 45 DAYS AFTER FOIL IS REMOVED ORAL ACTIVE 07/23/2025 [id number] 5 BROCK BONDS 2023 1 [place] [facility] MOMETASONE FUROATE 220MCG/INHL INHL,ORAL,6 0 INHALE 1 PUFF BY MOUTH EVERY EVENING TO PREVENT BREATHIN G TROUBLE *RINSE MOUTH AFTER USING *DO NOT BREATHE OUT THROUGH THE INHALER *DO NOT WASH INHALER *DISCARD 45 DAYS AFTER FOIL IS REMOVED ORAL DISCONT INUED BY PROVIDE R 03/18/2025 [id number] BROCK BONDS 2023 1 [facility] OMEPRAZOLE 20MG CAP,EC TAKE ONE CAPSULE BY MOUTH EVERY DAY FOR STOMACH ACID ORAL ACTIVE 10/10/2025 [id number] 5 BROCK BONDS 2024 90 [facility] OMEPRAZOLE 20MG CAP,EC TAKE ONE CAPSULE BY MOUTH EVERY DAY FOR STOMACH ACID ORAL DISCONT INUED 11/16/2024 [id number] 5 BROCK BONDS 2023 90 [facility] TERAZOSIN HCL 10MG CAP TAKE ONE CAPSULE BY MOUTH AT BEDTIME FOR PROSTATE AND BLOOD PRESSURE ORAL ACTIVE 10/10/2025 [id number] 5 JHOAN BONDSO Juvenal 2024 90 [facility] TERAZOSIN HCL 10MG CAP TAKE ONE CAPSULE BY MOUTH AT BEDTIME FOR PROSTATE AND BLOOD PRESSURE ORAL DISCONT INUED 02/11/2025 [id number] 4 BROCK BONDS 2023 90 [facility] Immunizations Combined list of available immunizations from the Department of Defense and Veterans Affairs facilities. Immunization Series Date Given Administered By Site Reaction Lot Number CVX Code Drug Hide Selector Status Comments Source COVID-19 ([facility]), MRNA, LNP-S, PF, HENRI-SUCROSE, 30 MCG/0.3 ML (AGES 12+ YEARS) 1 2023 MODE CLEMENTE RIGHT DELTO ID [id number] 309 complet ed [facility] INFLUENZA, HIGH-DOSE, TRIVALENT, PF 2023 MODE CLEMENTE LEFT DELTO ID [id number] A 135 complet ed Booster for Series, [facility] INFLUENZA, HIGH-DOSE, QUADRIVALENT 2022 BASILIO CRENSHAW RIGHT DELTO ID [id number] A 197 complet ed [facility] TDAP 2022 BASILIO CRENSHAW LEFT DELTO ID [id number] 115 complet ed [facility] COVID-19 ([facility]), MRNA, LNP-S, BIVALENT BOOSTER, PF, 30 MCG/0.3 ML DOSE 1 2021 SHARAD FRIAS LEFT DELTO ID [id number] 300 complet ed [facility] COVID-19 ([employer]), MRNA, LNP-S, PF, 30 MCG/0.3 ML DOSE, HENRI-SUCROSE (AGES 12+ YEARS) 4 2021 217 complet ed PFR; [id number]; 2 [facility] COVID-19 ([employer]), MRNA, LNP-S, PF, 30 MCG/0.3 ML DOSE 2 2020 208 complet ed PFR; [id number]; 1 [facility] COVID-19 ([employer]), MRNA, LNP-S, PF, 30 MCG/0.3 ML DOSE 1 2020 208 complet ed PFR; [id number]; 1 [facility] INFLUENZA, SEASONAL, INJECTABLE, PRESERVATIVE FREE 2018 140 complet ed [facility] ZOSTER RECOMBINANT 2 2018 187 complet ed [facility] INFLUENZA, SEASONAL, INJECTABLE, PRESERVATIVE FREE 2018 140 complet ed [facility] ZOSTER RECOMBINANT 1 2018 187 complet ed [facility] INFLUENZA, HIGH DOSE SEASONAL 2016 135 complet ed [facility] INFLUENZA, HIGH DOSE SEASONAL 2015 135 complet ed [facility] INFLUENZA, HIGH DOSE SEASONAL 2014 135 complet ed [facility] PNEUMOCOCCAL CONJUGATE PCV 13 2014 133 complet ed [place] [address] exp 12/11 [facility] INFLUENZA, UNSPECIFIED FORMULATION 2013 88 complet ed [facility] INFLUENZA, UNSPECIFIED FORMULATION 2012 88 complet ed [facility] PNEUMOCOCCAL, UNSPECIFIED FORMULATION 2012 109 [place] [id number] [facility] TDAP 2012 115 complet ed 253B4/ [facility] INFLUENZA, UNSPECIFIED FORMULATION 2011 88 complet ed [facility] ZOSTER LIVE 2011 121 complet ed xx [facility] INFLUENZA, UNSPECIFIED FORMULATION 2006 88 complet ed [facility] PNEUMOCOCCAL, UNSPECIFIED FORMULATION 2004 109 complet ed [facility] TD(ADULT) UNSPECIFIED FORMULATION 2003 139 complet ed [facility] Results Combined list of recent chemistry, hematology [...] Oct 10, 2024 09:21 AM Reporting Lab: [facility] [address] Performing Lab: [facility] [address] [facility] ALBUMIN/C REATININE RATIO URINE MICROALBUMI N/CREATININ E [MASS RATIO] IN URINE 50.0 mg/g{c reat} <29.9 - 29.9 11/06 H Specimen Type: URINE No comment entered. Ordering Provider: BROCK BONDS Report Released Date/Time: Oct 10, 2024 09:21 AM Reporting Lab: [facility] [address] Performing Lab: [facility] [address] [place] [facility] ALBUMIN/C REATININE RATIO URINE MICROALBUMI N [MASS/VOLUM E] IN URINE 71.1 mg/L <29.9 - 29.9 11/06 H Specimen Type: URINE No comment entered. Ordering Provider: BROCK BONDS Report Released Date/Time: Oct 10, 2024 09:21 AM Reporting Lab: [facility] [address] Performing Lab: [facility] [address] [place] [facility] BASIC METABOLIC PANEL+MG CREATININE [MASS/VOLUM E] IN SERUM OR PLASMA 1.1 mg/dL 0.7 - 1.2 11/06 Specimen Type: PLASMA No comment entered. Ordering Provider: BROCK BONDS Report Released Date/Time: Oct 09, 2024 09:44 AM Reporting Lab: [facility] [address] Performing Lab: [facility] [address] [place] [facility] BASIC METABOLIC PANEL+MG UREA NITROGEN [MASS/VOLUM E] IN SERUM OR PLASMA 28 mg/dL 8 - 26 11/06 H Specimen Type: PLASMA No comment entered. Ordering Provider: BROCK BONDS Report Released Date/Time: Oct 09, 2024 09:44 AM Reporting Lab: [facility] [address] Performing Lab: [facility] [address] [place] [facility] BASIC METABOLIC PANEL+MG GLUCOSE [MASS/VOLUM E] IN SERUM OR PLASMA 126 mg/dL 70 - 100 11/06 H Specimen Type: PLASMA No comment entered. Ordering Provider: BROCK BONDS Report Released Date/Time: Oct 09, 2024 09:44 AM Reporting Lab: [facility] [address] Performing Lab: [facility] [address] [place] [facility] BASIC METABOLIC PANEL+MG SODIUM [MOLES/VOLU ME] IN SERUM OR PLASMA 141 mmol/L 136 - 145 11/06 Specimen Type: PLASMA No comment entered. Ordering Provider: BORCK BONDS Report Released Date/Time: Oct 09, 2024 09:44 AM Reporting Lab: [facility] [address] Performing Lab: [facility] [address] [place] [facility] BASIC METABOLIC PANEL+MG POTASSIUM [MOLES/VOLU ME] IN SERUM OR PLASMA 4.4 mmol/L 3.5 - 5.1 11/06 Specimen Type: PLASMA No comment entered. Ordering Provider: BROCK BONDS Report Released Date/Time: Oct 09, 2024 09:44 AM Reporting Lab: [facility] [address] Performing Lab: [facility] [address] [place] [facility] BASIC METABOLIC PANEL+MG CHLORIDE [MOLES/VOLU ME] IN SERUM OR PLASMA 105 mmol/L 98 - 107 11/06 Specimen Type: PLASMA No comment entered. Ordering Provider: BROCK BONDS Report Released Date/Time: Oct 09, 2024 09:44 AM Reporting Lab: [facility] [address] Performing Lab: [facility] [address] [place] [facility] BASIC METABOLIC PANEL+MG CARBON DIOXIDE, TOTAL [MOLES/VOLU ME] IN SERUM OR PLASMA 29 mmol/L 22 - 29 11/06 Specimen Type: PLASMA No comment entered. Ordering Provider: BROCK BONDS Report Released Date/Time: Oct 09, 2024 09:44 AM Reporting Lab: [facility] [address] Performing Lab: [facility] [address] [place] [facility] BASIC METABOLIC PANEL+MG CALCIUM [MASS/VOLUM E] IN SERUM OR PLASMA 9.9 mg/dL 8.4 - 10.2 11/06 Specimen Type: PLASMA No comment entered. Ordering Provider: BROCK BONDS Report Released Date/Time: Oct 09, 2024 09:44 AM Reporting Lab: [facility] [address] Performing Lab: [facility] [address] [place] [facility] BASIC METABOLIC PANEL+MG MAGNESIUM [MASS/VOLUM E] IN SERUM OR PLASMA 1.7 mg/dL 1.6 - 2.6 11/06 Specimen Type: PLASMA No comment entered. Ordering Provider: BROCK BONDS Report Released Date/Time: Oct 09, 2024 09:44 AM Reporting Lab: [facility] [address] Performing Lab: [facility] [address] [place] [facility] BASIC METABOLIC PANEL+MG ANION GAP IN SERUM OR PLASMA 7 mmol/L 5 - 15 11/06 Specimen Type: PLASMA No comment entered. Ordering Provider: BROCK BONDS Report Released Date/Time: Oct 09, 2024 09:44 AM Reporting Lab: [facility] [address] Performing Lab: [facility] [address] [place] [facility] BASIC METABOLIC PANEL+MG GLOMERULAR FILTRATION RATE/1.73 SQ M.PREDICTED [VOLUME RATE/AREA] IN SERUM, PLASMA OR BLOOD BY CREATININE- BASED FORMULA (CKD-EPI 2020) 68 60 11/06 Specimen Type: PLASMA No comment entered. Ordering Provider: BROCK BONDS Report Released Date/Time: Oct 09, 2024 09:44 AM Reporting Lab: [facility] [address] Performing Lab: [facility] [address] [place] [facility] B 12 COBALAMIN (VITAMIN B12) [MASS/VOLUM E] IN SERUM OR PLASMA 260 pg/mL 213 - 816 11/06 Specimen Type: SERUM No comment entered. Ordering Provider: BROCK BONDS Report Released Date/Time: Oct 15, 2024 11:00 AM Reporting Lab: [facility] [address] Performing Lab: [facility] [address] [place] [facility] CBC LEUKOCYTES [#/VOLUME] IN BLOOD BY AUTOMATED COUNT 8.3 4.0 - 11.0 11/06 Specimen Type: BLOOD No comment entered. Ordering Provider: BROCK BONDS Report Released Date/Time: Oct 15, 2024 11:00 AM Reporting Lab: [facility] [address] Performing Lab: [facility] [address] [place] [facility] CBC ERYTHROCYTE S [#/VOLUME] IN BLOOD BY AUTOMATED COUNT 4.67 4.60 - 6.20 11/06 Specimen Type: BLOOD No comment entered. Ordering Provider: BROCK BONDS Report Released Date/Time: Oct 15, 2024 11:00 AM Reporting Lab: [facility] [address] Performing Lab: [facility] [address] [place] [facility] CBC HEMOGLOBIN [MASS/VOLUM E] IN BLOOD 12.9 g/dL 13.5 - 17.9 11/06 L Specimen Type: BLOOD No comment entered. Ordering Provider: BROCK BONDS Report Released Date/Time: Oct 15, 2024 11:00 AM Reporting Lab: [facility] [address] Performing Lab: [facility] [address] [place] [facility] CBC HEMATOCRIT [VOLUME FRACTION] OF BLOOD BY AUTOMATED COUNT 40.1 41.0 - 54.0 11/06 L Specimen Type: BLOOD No comment entered. Ordering Provider: BROCK BONDS Report Released Date/Time: Oct 15, 2024 11:00 AM Reporting Lab: [facility] [address] Performing Lab: [facility] [address] [place] [facility] CBC MCV [ENTITIC VOLUME] BY AUTOMATED COUNT 85.9 fL 80.0 - 100.0 11/06 Specimen Type: BLOOD No comment entered. Ordering Provider: BROCK BONDS Report Released Date/Time: Oct 15, 2024 11:00 AM Reporting Lab: [facility] [address] Performing Lab: [facility] [address] [place] [facility] CBC MCH [ENTITIC MASS] BY AUTOMATED COUNT 27.6 pg 27.0 - 33.0 11/06 Specimen Type: BLOOD No comment entered. Ordering Provider: BROCK BONDS Report Released Date/Time: Oct 15, 2024 11:00 AM Reporting Lab: [facility] [address] Performing Lab: [facility] [address] [facility] CBC MCHC [MASS/VOLUM E] BY AUTOMATED COUNT 32.2 g/dL 32.0 - 37.5 11/06 Specimen Type: BLOOD No comment entered. Ordering Provider: BROCK BONDS Report Released Date/Time: Oct 15, 2024 11:00 AM Reporting Lab: [facility] [address] Performing Lab: [facility] [address] [facility] CBC PLATELETS [#/VOLUME] IN BLOOD BY AUTOMATED COUNT 261 150 - 400 11/06 Specimen Type: BLOOD No comment entered. Ordering Provider: BROCK BONDS Report Released Date/Time: Oct 15, 2024 11:00 AM Reporting Lab: [facility] [address] Performing Lab: [facility] [address] [facility] CBC PLATELET MEAN VOLUME [ENTITIC VOLUME] IN BLOOD BY AUTOMATED COUNT 9.4 fL 9.1 - 13.0 11/06 Specimen Type: BLOOD No comment entered. Ordering Provider: BROCK BONDS Report Released Date/Time: Oct 15, 2024 11:00 AM Reporting Lab: [facility] [address] Performing Lab: [facility] [address] [facility] CBC ERYTHROCYTE DISTRIBUTIO N WIDTH [RATIO] BY AUTOMATED COUNT 13.2 11.5 - 14.5 11/06 Specimen Type: BLOOD No comment entered. Ordering Provider: BROCK BONDS Report Released Date/Time: Oct 15, 2024 11:00 AM Reporting Lab: [facility] [address] Performing Lab: [facility] [address] [facility] FOLATE FOLATE [MASS/VOLUM E] IN SERUM OR PLASMA >20.0n g/mL 7.0 11/06 Specimen Type: SERUM No comment entered. Ordering Provider: BROCK BONDS Report Released Date/Time: Oct 15, 2024 11:00 AM Reporting Lab: [facility] [address] Performing Lab: [facility] [address] [place] [facility] IRON GROUP IRON [MASS/VOLUM E] IN SERUM OR PLASMA 123 ug/dL 65 - 175 11/06 Specimen Type: SERUM No comment entered. Ordering Provider: BROCK BONDS Report Released Date/Time: Oct 15, 2024 11:00 AM Reporting Lab: [facility] [address] Performing Lab: [facility] [address] [place] [facility] IRON GROUP IRON BINDING CAPACITY [MASS/VOLUM E] IN SERUM OR PLASMA 310 ug/dL 250 - 425 11/06 Specimen Type: SERUM No comment entered. Ordering Provider: BROCK BONDS Report Released Date/Time: Oct 15, 2024 11:00 AM Reporting Lab: [facility] [address] Performing Lab: [facility] [address] [place] [facility] IRON GROUP FERRITIN [MASS/VOLUM E] IN SERUM OR PLASMA 59.2 ng/mL 21.8 - 274.7 11/06 Specimen Type: SERUM No comment entered. Ordering Provider: BROCK BONDS Report Released Date/Time: Oct 15, 2024 11:00 AM Reporting Lab: [facility] [address] Performing Lab: [facility] [address] [place] [facility] IRON GROUP IRON SATURATION 40 20 - 50 11/06 Specimen Type: SERUM No comment entered. Ordering Provider: BROCK BONDS Report Released Date/Time: Oct 15, 2024 11:00 AM Reporting Lab: [facility] [address] Performing Lab: [facility] [address] [place] [facility] IRON GROUP TRANSFERRIN [MASS/VOLUM E] IN SERUM OR PLASMA 248 mg/dL 163 - 382 11/06 Specimen Type: SERUM No comment entered. Ordering Provider: BROCK BONDS Report Released Date/Time: Oct 15, 2024 11:00 AM Reporting Lab: [facility] [address] Performing Lab: [facility] [address] [place] [facility] METHYLMAL ONIC ACID METHYLMALON ATE [MOLES/VOLU ME] IN SERUM OR PLASMA 214 nmol/L 0 - 400 11/06 Specimen Type: SERUM No comment entered. Ordering Provider: BROCK BONDS Report Released Date/Time: Nov 06, 2024 12:13 PM Reporting Lab: [facility] [address] Performing Lab: [facility] [address] [place] [facility] CBC LEUKOCYTES [#/VOLUME] IN BLOOD BY AUTOMATED COUNT 6.8 4.0 - 11.0 10/09 Specimen Type: BLOOD No comment entered. Ordering Provider: BROCK BONDS Report Released Date/Time: Oct 19, 2023 03:01 PM Reporting Lab: [facility] [address] Performing Lab: [facility] [address] [place] [facility] CBC ERYTHROCYTE S [#/VOLUME] IN BLOOD BY AUTOMATED COUNT 4.40 4.60 - 6.20 10/09 L Specimen Type: BLOOD No comment entered. Ordering Provider: BROCK BONDS Report Released Date/Time: Oct 19, 2023 03:01 PM Reporting Lab: [facility] [address] Performing Lab: [facility] [address] [place] [facility] CBC HEMOGLOBIN [MASS/VOLUM E] IN BLOOD 12.0 g/dL 13.5 - 17.9 10/09 L Specimen Type: BLOOD No comment entered. Ordering Provider: BROCK BONDS Report Released Date/Time: Oct 19, 2023 03:01 PM Reporting Lab: [facility] [address] Performing Lab: [facility] [address] [place] [facility] CBC HEMATOCRIT [VOLUME FRACTION] OF BLOOD BY AUTOMATED COUNT 37.4 41.0 - 54.0 10/09 L Specimen Type: BLOOD No comment entered. Ordering Provider: BROCK BONDS Report Released Date/Time: Oct 19, 2023 03:01 PM Reporting Lab: [facility] [address] Performing Lab: [place] [address] [place] [facility] CBC MCV [ENTITIC VOLUME] BY AUTOMATED COUNT 85.0 fL 80.0 - 100.0 10/09 Specimen Type: BLOOD No comment entered. Ordering Provider: BROCK BONDS Report Released Date/Time: Oct 19, 2023 03:01 PM Reporting Lab: [facility] [address] Performing Lab: [facility] [address] [facility] CBC MCH [ENTITIC MASS] BY AUTOMATED COUNT 27.3 pg 27.0 - 33.0 10/09 Specimen Type: BLOOD No comment entered. Ordering Provider: BROCK BONDS Report Released Date/Time: Oct 19, 2023 03:01 PM Reporting Lab: [facility] [address] Performing Lab: [facility] [address] [facility] MCHC [MASS/VOLUM E] BY AUTOMATED COUNT 32.1 g/dL 32.0 - 37.5 10/09 Specimen Type: BLOOD No comment entered. Ordering Provider: BROCK BONDS Report Released Date/Time: Oct 19, 2023 03:01 PM Reporting Lab: [facility] [address] Performing Lab: [facility] [address] [facility] CBC PLATELETS [#/VOLUME] IN BLOOD BY AUTOMATED COUNT 272 150 - 400 10/09 Specimen Type: BLOOD No comment entered. Ordering Provider: BROCK BONDS Report Released Date/Time: Oct 19, 2023 03:01 PM Reporting Lab: [facility] [phone] Performing Lab: [facility] [address] [facility] CBC PLATELET MEAN VOLUME [ENTITIC VOLUME] IN BLOOD BY AUTOMATED COUNT 9.1 fL 9.1 - 13.0 10/09 Specimen Type: BLOOD No comment entered. Ordering Provider: BROCK BONDS Report Released Date/Time: Oct 19, 2023 03:01 PM Reporting Lab: [facility] [phone] Performing Lab: [facility] [address] [facility] CBC ERYTHROCYTE DISTRIBUTIO N WIDTH [RATIO] BY AUTOMATED COUNT 12.8 11.5 - 14.5 10/09 Specimen Type: BLOOD No comment entered. Ordering Provider: BROCK BONDS Report Released Date/Time: Oct 19, 2023 03:01 PM Reporting Lab: [facility] [id number] Performing Lab: [facility] [address] [place] [facility] HEMOGLOBI N A1C HEMOGLOBIN A1C/HEMOGLO [...] Oct 19, 2023 03:01 PM Reporting Lab: [facility] [address] Performing Lab: [facility] [address] [place] [facility] LIPID PANEL,NON -FASTING CHOLESTEROL [MASS/VOLUM E] IN SERUM OR PLASMA 128 mg/dL <199 - 199 10/09 Specimen Type: PLASMA No comment entered. Ordering Provider: BROCK BONDS Report Released Date/Time: Oct 19, 2023 03:01 PM Reporting Lab: [facility] [address] Performing Lab: [facility] [address] [place] [facility] LIPID PANEL,NON -FASTING CHOLESTEROL IN HDL [MASS/VOLUM E] IN SERUM OR PLASMA 39 mg/dL 40 10/09 L Specimen Type: PLASMA No comment entered. Ordering Provider: BROCK BONDS Report Released Date/Time: Oct 19, 2023 03:01 PM Reporting Lab: [facility] [address] Performing Lab: [facility] [address] [place] [facility] LIPID PANEL,NON -FASTING CHOLESTEROL IN LDL [MASS/VOLUM E] IN SERUM OR PLASMA BY CALCULATION 80 mg/dL <99 - 99 10/09 Specimen Type: PLASMA No comment entered. Ordering Provider: BROCK BONDS Report Released Date/Time: Oct 19, 2023 03:01 PM Reporting Lab: [facility] [address] Performing Lab: [facility] [address] [place] [facility] LIPID PANEL,NON -FASTING CHOLESTEROL IN VLDL [MASS/VOLUM E] IN SERUM OR PLASMA BY CALCULATION 9 mg/dL <29 - 29 10/09 Specimen Type: PLASMA No comment entered. Ordering Provider: BROCK BONDS Report Released Date/Time: Oct 19, 2023 03:01 PM Reporting Lab: [facility] [address] Performing Lab: [facility] [address] [place] [facility] LIPID PANEL,NON -FASTING CHOLESTEROL NON HDL [MASS/VOLUM E] IN SERUM OR PLASMA 89 mg/dL <129 - 129 10/09 Specimen Type: PLASMA No comment entered. Ordering Provider: BROCK BONDS Report Released Date/Time: Oct 19, 2023 03:01 PM Reporting Lab: [facility] [address] Performing Lab: [facility] [address] [place] [facility] LIPID PANEL,NON -FASTING TRIGLYCERID E [MASS/VOLUM E] IN SERUM OR PLASMA 45 mg/dL <149 - 149 10/09 Specimen Type: PLASMA No comment entered. Ordering Provider: BROCK BONDS Report Released Date/Time: Oct 19, 2023 03:01 PM Reporting Lab: [facility] [address] Performing Lab: [facility] [address] [place] [facility] Vital Signs Combined list of inpatient and outpatient Vital Signs from Department of Defense and Veterans Affairs, ranging from 12 months to all on record, depending upon the facility. Vital Sign Value Date Comments Source SYSTOLIC BLOOD PRESSURE 151 10/09/2024 08:27:25 [facility] DIASTOLIC BLOOD PRESSURE 76 10/09/2024 08:27:25 [facility] PULSE OXIMETRY 94 10/09/2024 08:27:25 [place] [facility] WEIGHT 220 10/09/2024 08:27:25 [facility] BMI 34 kg/m2 10/09/2024 08:27:25 [facility] PAIN 0 10/09/2024 08:27:25 [facility] HEIGHT 68 10/09/2024 08:27:25 [facility] TEMPERATURE 96.7 10/09/2024 08:27:25 [facility] PULSE 86 10/09/2024 08:27:25 [facility] RESPIRATION 19 10/09/2024 08:27:25 [facility] Encounters Combined list of: 1) Encounters from Department of Veterans Affairs facilities going backup to the last 18 months, not all [place] inpatient encounters are included; 2) Encounters from the Department of [facility] facilities going backup to 280 months. Location Location Details Encounter Type Encounter Number Reason For Visit Attending Provider ADM Date DC Date Status Disposition Source [facility] OFFICE O/P EST HI 40 MIN [id number] Diagnos is: ICD-10- CM I10 Essenti al (primar y) hyperte nsion BROCK BONDS 10/19 [facility] IS [facility] UNLISTED SPEC DERM SVC/PX [id number] Diagnos is: ICD-10- CM D48.5 Neoplas m of uncerta in behavio r of skin GHULAM SMITH A 10/19 [facility] IS [facility] Outpatient Encounter [id number] Diagnos is: ICD-10- CM D48.5 Neoplas m of uncerta in behavio r of skin DANISH GUADARRAMA 10/22 [facility] IS [facility] Outpatient Encounter [id number] 10/23 [facility] Outpatient Encounter [id number] 10/28 [place] [facility] [place] [facility] Outpatient Encounter [id number] 11/12 [place] [facility] [place] [facility] MTMS BY PHARM EST 15 MIN [id number] Diagnos is: ICD-10- CM I10 Essenti al (primar y) hyperte ANTONIO Larsen 11/12 [place] [facility] [place] [facility] Outpatient Encounter [id number] 11/18 [place] [facility] [place] [facility] Outpatient Encounter [id number] 12/02 [place] [facility] [place] [facility] MOD SED SAME PHYS/QHP 5/>YRS [id number] Diagnos is: ICD-10- CM K22.89 Other specifi ed disease of esophag us MERARY OHUSTON 12/03 [place] [facility] [place] [facility] Outpatient Encounter [id number] 12/03 [place] [facility] [place] [facility] Outpatient Encounter [id number] 12/04 [place] [facility] [place] [facility] Outpatient Encounter [id number] ANMOL RICHARD 12/04 [place] [facility] [place] [facility] Outpatient Encounter [id number] 01/10 [place] [facility] [place] [facility] OFFICE O/P EST MOD 30 MIN [id number] Diagnos is: ICD-10- CM 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 MIC HAEL A 02[facility] [place] [facility] Outpatient Encounter [id number] 03/20 [place] [facility] [place] [facility] ADMN SARSCOV2 VACC 1 DOSE [id number] Diagnos is: ICD-10- CM Z23 Encount er for immuniz ation MODE CLEMENTE Yasmeen 06/19 [facility] Outpatient Encounter [id number] 10/09 [facility] Outpatient Encounter [id number] 10/09 [facility] OFFICE O/P EST MOD 30 MIN [id number] Diagnos is: ICD-10- CM L57.0 Actinic keratos is BROCK BONDS 10/09 [facility] PH1 ASSMT&MGMT NQHP 11-20 [id number] Diagnos is: ICD-10- CM I10 Essenti al (primar y) hyperte nsion BROCK BONDS 11/06 [facility] IS [facility] OFFICE O/P EST MOD 30 MIN [id number] Diagnos is: ICD-10- CM D48.5 Neoplas m of uncerta in behavio r of skin SKIBNESS,L ORIE A 11/11 [facility] Outpatient Encounter [id number] 11/12 [facility] Outpatient Encounter [id number] RICHARD MAYNARD 11/13 [facility] Outpatient Encounter [id number] 11/19 [facility] OFFICE O/P EST MOD 30 MIN [id number] Diagnos is: ICD-10- CM 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 Additional future care activities may be listed in the Assessment and Plan section. Date/Time Care Activity Care Activity Detail Facili ty 05/11/2025 AMBULATORY - SURGERY AMBULATORY - SURGERY [facility] Advance Directives List of completed, amended, or rescinded Advance Directives on record at [facility] facilities. An actual copy of the Directive is not included. Date Advance Directive Provider Source 10/28/2003 ADVANCE DIRECTIVE [facility]
--- OUTSIDE RECORDS SUMMARY | 2025-04-14 21:23 | XMS_ITS | Clinical Summary ---
Author Organization [facility] Address [address] [place] [id number] Care Team Providers Care Fixture Builder Name Role Phone Pcp, No Primary Care Provider Unavailabl e Allergies Active Allergy Reactions Criticality Noted Date Comments Unlisted Allergen (Include Detail In Comments) Shortness Of Breath 03/02/2010 [facility] wood/shavings. Medications aspirin enteric coated (ECOTRIN) 325 mg tablet Take 1 tablet by mouth 2 times daily with meals. 0 03/02/2010 Active acetaminophen (TYLENOL EXTRA STRGTH) 500 mg tablet Take 1 tablet by mouth. Take one tablet daily, as needed. 0 03/02/2010 Active esomeprazole (NEXIUM) 20 mg capsule Take 1 capsule by mouth once daily before a meal. 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 Gender Identity Not on file Sexual Orientation Not on file Obstetrics History Last Filed Vital Signs Vital Sign Reading Time Taken Comments Blood Pressure 162/87 08/22/2010 10:30 AM 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 Pulse 80 08/22/2010 10:30 AM 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 Temperature 36.8 C (98.3 F) 10/01/2007 1:23 PM PLANT F[employer]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 Respiratory Rate - - Oxygen Saturation - - Inhaled Oxygen Concentration - - Weight 100.2 kg (221 lb) 08/22/2010 10:30 AM [employer]ANT [employer]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 Height - - Body Mass Index - - Plan of Treatment Health Maintenance Due Date Last Done Comments Tetanus booster 11/18/1955 Depression screening for age 12+ 1956 BMI (ht and wt on same day) for age 18+ 1962 Pneumococcal series for age 50+ (1 of 1 - PCV) 1994 Zoster (shingles) series for age 50+ (1 of 2) 1994 RSV vaccine for adults or (1 - 1-dose 75+ series) 11/18/2019 COVID-19 vaccine series (1 - season) 2024 Influenza Vaccine (#1) 2025 Hepatitis B series for 19+ Aged Out N o longer eligible based on patient's age to complete this topic Insurance MEDICARE [place] ONLY Care Teams Fixture Builder Relationship Specialty Start Date End Date Pcp, No . PCP - General 09/02/24
[2025-04-14 21:26] VITALS: BP 171/95; PULSE 84; RESP 18; TEMP 36.9; O2SAT 98; BMI 33.5
--- NOTE | 2025-04-14 21:35 | CRLHL7_ITS ---
For Patients: As a result of the Cures Act, medical imaging exams and procedure reports are released immediately into your electronic medical record. You may view this report before your referring provider. If you have questions, please contact your health care provider. Indication: Left ankle pain, twisted Technique: Three views of the left ankle Comparison: None Findings/Impression: Kauffman type B fracture through the lateral malleolus. Dictated by Percy Lindsey MD @ 04/14/2025 10:39:58 PM (Electronically Signed)
--- NOTE | 2025-04-14 21:37 | ED_ITS ---
HPI - General Adult General Date Seen: 04/14/25 Chief complaint: Extremity Pain/Injury, Lower Stated complaint: twisted left ankle Time Seen by Provider: 04/14/25 21:27 History of Present Illness HPI narrative: Patient is an 79-year-old here with his for evaluation of his left ankle. A few hours ago he stepped on some acorns, he says it was just like he stepped on marbles in his leg slipped out from under him. He twisted his left ankle and is having difficulty putting weight on it because it really hurts. Denies other injuries or complaints. Related Data Previous Rx's ?Medication ?Instructions ?Recorded walker #1 ea 04/14/25 Allergies Allergy/AdvReac Type Severity Reaction Status Date / Time No Known Drug Allergies Allergy Verified 04/14/25 21:33 Review of Systems Status of ROS: Reports: 6 or more systems reviewed and unremarkable except as noted in History and below Exam Narrative: Exam Narrative: Vital signs reviewed. In general, and alert, nontoxic elderly male. Extremities: Examination of the left lower extremity shows some swelling around the ankle both medial and lateral although he does not have any medial tenderness. He does have tenderness over the lateral malleolus. He does not have any tenderness over the 5th metatarsal or head of the fibula. Const: Vital Signs, click to edit/add: Vital Signs - 24 hr 04/14/25 21:26 Temperature 98.5 F Pulse Rate [Right Pulse Oximeter] 84 Respiratory Rate 18 Blood Pressure [Ri ght Upper Arm] 171/95 H Pulse Oximetry 98 Oxygen Delivery Me thod Room Air Course Course ED Course: X-rays of the left ankle by my review show a distal fibular fracture. Radiology report is of a Kauffman type B fracture through the lateral malleolus. Discussed this with the patient his . I think he is probably going to have difficulty not doing any weight-bearing on this from a mobility standpoint. I am going to put him in a boot because I think that will probably hold up a little better if he is needing to do partial weight-bearing. He has a cane, he says he can not really offload anything on to the cane he uses that more for balance. He would like to try crutches, his has some concerns about his ability to manage with that. We did try that here and he feels like he can do crutches. He also wants something for pain stronger than Tylenol, so I prescribed some hydrocodone. Discussed with him that for the most part it would just like him to take it easy over the next couple days, elevate his leg and stay off of it as much as possible. I sent a prescription for a walker to his pharmacy as I think that is overall going to be a better option for him if he is willing to pick that up. We were not able to schedule an appointment for him with Orthopedics, but will e-mail the clinic for them to reach back out to him tomorrow and we gave him their phone number if needed. Stressed the importance of follow-up. If he is not able to manage at home safely, return to the emergency department. Vital Signs Vital signs: Initial Vital Signs Temperature 98.5 F 04/14/25 21:26 Temperature Source Temporal Artery Scan 04/14/25 21:26 Pulse Rate 84 04/14/25 21:26 Pulse Rhythm Regular 04/14/25 21:26 Pulse Strength 3+ Normal 04/14/25 21:26 Respiratory Rate 18 04/14/25 21:26 Blood Pressure 171/95 H 04/14/25 21:26 Blood Pressure Mean 120 H 04/14/25 21:26 Blood Pressure Position Sitting 04/14/25 21:26 Pulse Oximetry 98 04/14/25 21:26 Oxygen Delivery Method Room Air 04/14/25 21:26 Vital Signs Temperature 98.5 F 04/14/25 21:26 Pulse Rate 84 04/14/25 21:26 Respiratory Rate 18 04/14/25 21:26 Blood Pressure 171/95 H 04/14/25 21:26 Pulse Oximetry 98 04/14/25 21:26 Oxygen Delivery Method Room Air 04/14/25 21:26 Temperature 98.5 F 04/14/25 21:26 Pulse Rate 84 04/14/25 21:26 Respiratory Rate 18 04/14/25 21:26 Blood Pressure 171/95 H 04/14/25 21:26 Pulse Oximetry 98 04/14/25 21:26 Oxygen Delivery Method Room Air 04/14/25 21:26 Medical Decision Making Imaging Data Ankle x-ray: Attestation: I have reviewed the pertinent imaging results. Radiologist's impression: Patient: MICKEY ALARCON Facility: [facility] . Site : 1945 Study: XRay-Extremity Left ANKLE 3 VIEWS-04/14/2025 10:07:58 PM Ordering Physician: Abbey Prabhakar Final Report: Indication: Left ankle pain, twisted Technique: Three views of the left ankle Comparison: None Findings/Impression: Kauffman type B fracture through the lateral malleolus. Discharge Plan Discharge Clinical Impression: Left fibular fracture Patient Disposition: Home, Self-Care Condition: Stable Instructions: Leg Fracture (ED) Additional Instructions: Ideally, we would have you minimize weight-bearing on this. If you are able to get a walker, I think this would be helpful. I did send a prescription to [facility] for you for a walker, if that is helpful for you. As discussed, I would like you to take it easy over the next couple days. Elevate your leg as much as possible. You will need to see Orthopedics in clinic in the next few days. Someone from the orthopedic clinic should call you tomorrow. If for some reason you do not hear from them, call the number on the card. If you are having difficulties managing at home, return to the ER. Prescriptions: New (DME) walker Misc See Rx Instructions .Route Qty: 1 0RF Rx Instructions: As directed Follow Up/Referrals: Provider,Not a Local [Primary Care Provider, Family Practice] Stand Alone Forms: MyHealth Info Instructions
== END 2025-04-14 22:56 | disposition home or self-care (01) ==
PROVIDERS: Emergency Provider Emergency Medicine
DX: S82.62XA Displaced fracture of lateral malleolus of left fibula, initial encounter for closed fracture (principal); X50.1XXA Overexertion from prolonged static or awkward postures, initial encounter
CPT/HCPCS: 73610; 99283; 99284